=== PATIENT | female | born 1935 | race Caucasian/White ===

== ENCOUNTER 2017-07-23 06:39 | Inpatient (IN) | payer OTHER ==
[~2017-07-23] VITALS: Ht 152.4 cm; Wt 73.6 kg
[2017-07-23] VITALS (16 sets, daily range): BP systolic 98–259; BP diastolic 22–137
[2017-07-23 07:57] LABS: PLATELET COUNT 192 x10^3mcL (130-400); RED CELL DISTRIBUTION WIDTH 13.8 % (11.5-14.5)
[2017-07-23 08:13] LABS: CALCIUM 8.5 mg/dL (8.5-10.1); CARBON DIOXIDE 25.3 mmol/L (21-32); CHLORIDE SERUM 96 mmol/L (98-107); CREATININE SERUM 0.9 mg/dL (0.6-1.0); GLUCOSE SERUM 313 mg/dL (74-106); POTASSIUM SERUM 3.7 mmol/L (3.5-5.1); SODIUM SERUM 131 mmol/L (136-145)
[2017-07-23 08:22] LABS: BAND NEUTROPHIL 12 % (0-10); METAMYELOCTE 5 % (0-2); MONOCYTE 4 % (0-7); MYELOCYTE 1 % (0-2); SEGMENTED NEUTROPHILS 71 % (37-75); rbc morphology (normal/abnorm) NORMAL (NORMAL)
[2017-07-23] MEDS ORDERED: DICLOFENAC SODI75 MG PO (08:25)
[2017-07-23] MEDS ORDERED: METFORMIN HCL850 MG PO (08:25)
[2017-07-23] MEDS ORDERED: COZAAR25 M1 PO (08:25)
[2017-07-23] MEDS ORDERED: GLIPIZIDE5 M2 PO (08:25)
[2017-07-23] MEDS ORDERED: SIMVASTATIN20 M1 PO (08:26)
[2017-07-23 08:29] LABS: ALKALINE PHOSPHATASE 111 U/L (46-116); ALT/SGPT 22 U/L (14-59); AMYLASE 31 U/L (25-115); AST/SGOT 21 U/L (15-37); BILIRUBIN TOTAL 0.44 mg/dL (0.20-1.00); LIPASE 74 IU/L (73-393); T4(THYROXINE) 6.3 ug/dL (4.7-13.3)
[2017-07-23 08:30] LABS: ALBUMIN 3.3 g/dL (3.4-5.0); CHOLESTEROL 228 mg/dL (<200); HDL CHOLESTEROL 61 mg/dL (40-60)
[2017-07-23 09:16] LABS: UA SPECIFIC GRAVITY 1.015 (1.005-1.035); microscopic required? YES; urine erythrocyte TRACE (NEGATIVE)
[2017-07-23 10:10] LABS: MAGNESIUM 1.6 mg/dL (1.8-2.4); PHOSPHOROUS 2.5 mg/dL (2.5-4.9)
[2017-07-23 10:35] LABS: T3 TOTAL 0.75 ng/mL
[2017-07-23 10:37] LABS: CHOLESTEROL/HDL RATIO 3.9
[2017-07-23 11:20] LABS: FREE T4 0.98 ng/dL (0.76-1.46); FREE THYROXINE INDEX 2.2 ug/dL (1.4-4.5); T4(THYROXINE) 6.8 ug/dL (4.7-13.3)
[2017-07-24] VITALS (17 sets, daily range): BP systolic 81–154; BP diastolic 43–108
[2017-07-24 04:51] LABS: PLATELET COUNT 171 x10^3mcL (130-400)
[2017-07-24 05:03] LABS: RED CELL DISTRIBUTION WIDTH 14.8 % (11.5-14.5)
[2017-07-24 05:04] LABS: CALCIUM 7.3 mg/dL (8.5-10.1); CARBON DIOXIDE 24.5 mmol/L (21-32); CHLORIDE SERUM 100 mmol/L (98-107); GLUCOSE SERUM 257 mg/dL (74-106); MAGNESIUM 1.6 mg/dL (1.8-2.4); PHOSPHOROUS 3.2 mg/dL (2.5-4.9); POTASSIUM SERUM 3.1 mmol/L (3.5-5.1); SODIUM SERUM 133 mmol/L (136-145)
[2017-07-24 05:51] LABS: BAND NEUTROPHIL 14 % (0-10); METAMYELOCTE 3 % (0-2); MONOCYTE 2 % (0-7); SEGMENTED NEUTROPHILS 74 % (37-75)
[2017-07-24 05:56] LABS: rbc morphology (normal/abnorm) ABNORMAL (NORMAL)
[2017-07-24 05:57] LABS: PLATELET MORPHOLOGY LARGE PLATELET SEEN
[2017-07-25] VITALS (19 sets, daily range): BP systolic 101–172; BP diastolic 49–73
[2017-07-25 05:52] LABS: CALCIUM 7.8 mg/dL (8.5-10.1); CARBON DIOXIDE 25.2 mmol/L (21-32); CHLORIDE SERUM 104 mmol/L (98-107); CREATININE SERUM 0.7 mg/dL (0.6-1.0); GLUCOSE SERUM 223 mg/dL (74-106); PHOSPHOROUS 2.1 mg/dL (2.5-4.9); POTASSIUM SERUM 3.4 mmol/L (3.5-5.1); SODIUM SERUM 136 mmol/L (136-145)
[2017-07-25 05:59] LABS: BASOPHIL % 0.1 % (0-2); PLATELET COUNT 163 x10^3mcL (130-400)
[2017-07-25 06:01] LABS: RED CELL DISTRIBUTION WIDTH 15.1 % (11.5-14.5)
[2017-07-26] VITALS (14 sets, daily range): BP systolic 96–195; BP diastolic 47–95
[2017-07-26 06:36] LABS: CARBON DIOXIDE 26.4 mmol/L (21-32); CHLORIDE SERUM 110 mmol/L (98-107); CREATININE SERUM 0.6 mg/dL (0.6-1.0); GLUCOSE SERUM 206 mg/dL (74-106); MAGNESIUM 1.7 mg/dL (1.8-2.4); PHOSPHOROUS 2.2 mg/dL (2.5-4.9); POTASSIUM SERUM 3.7 mmol/L (3.5-5.1); SODIUM SERUM 142 mmol/L (136-145)
[2017-07-26 06:55] LABS: PLATELET COUNT 181 x10^3mcL (130-400)
[2017-07-26 07:02] LABS: RED CELL DISTRIBUTION WIDTH 15.4 % (11.5-14.5)
[2017-07-26 11:16] LABS: BAND NEUTROPHIL 15 % (0-10); BASOPHIL 0 % (0-2); MONOCYTE 5 % (0-7); MYELOCYTE 2 % (0-2); SEGMENTED NEUTROPHILS 70 % (37-75)
[2017-07-26 11:18] LABS: rbc morphology (normal/abnorm) ABNORMAL (NORMAL)
[2017-07-27] VITALS (7 sets, daily range): BP systolic 133–158; BP diastolic 59–79
[2017-07-27 05:17] LABS: BASOPHIL % 0.4 % (0-2); PLATELET COUNT 186 x10^3mcL (130-400)
[2017-07-27 05:25] LABS: CALCIUM 7.9 mg/dL (8.5-10.1); CARBON DIOXIDE 30.9 mmol/L (21-32); CHLORIDE SERUM 106 mmol/L (98-107); CREATININE SERUM 0.6 mg/dL (0.6-1.0); GLUCOSE SERUM 188 mg/dL (74-106); PHOSPHOROUS 3.2 mg/dL (2.5-4.9); SODIUM SERUM 140 mmol/L (136-145)
[2017-07-27 05:29] LABS: POTASSIUM SERUM 2.9 mmol/L (3.5-5.1)
[2017-07-27 12:52] LABS: CALCIUM 8.2 mg/dL (8.5-10.1); CARBON DIOXIDE 31.3 mmol/L (21-32); CHLORIDE SERUM 104 mmol/L (98-107); CREATININE SERUM 0.6 mg/dL (0.6-1.0); GLUCOSE SERUM 189 mg/dL (74-106); POTASSIUM SERUM 3.4 mmol/L (3.5-5.1); SODIUM SERUM 140 mmol/L (136-145)
[2017-07-28] VITALS: BP 166/69
[2017-07-28 04:00] VITALS: BP 158/72
[2017-07-28 05:30] LABS: BASOPHIL % 0.2 % (0-2); PLATELET COUNT 227 x10^3mcL (130-400)
[2017-07-28 05:44] LABS: CALCIUM 8.3 mg/dL (8.5-10.1); CARBON DIOXIDE 29.9 mmol/L (21-32); CHLORIDE SERUM 109 mmol/L (98-107); CREATININE SERUM 0.6 mg/dL (0.6-1.0); GLUCOSE SERUM 144 mg/dL (74-106); MAGNESIUM 1.7 mg/dL (1.8-2.4); PHOSPHOROUS 3.4 mg/dL (2.5-4.9); POTASSIUM SERUM 3.6 mmol/L (3.5-5.1); SODIUM SERUM 147 mmol/L (136-145)
[2017-07-28 06:58] LABS: RED CELL DISTRIBUTION WIDTH 15.1 % (11.5-14.5)
[2017-07-28 08:00] VITALS: BP 135/56
[2017-07-28 08:21] VITALS: Ht 152.4 cm; Wt 73.6 kg
[2017-07-28 11:45] VITALS: BP 160/64
[2017-07-28 15:30] VITALS: BP 155/73
[2017-07-28 22:00] VITALS: BP 175/76
[2017-07-29] VITALS (9 sets, daily range): BP systolic 120–198; BP diastolic 51–81
[2017-07-29 06:28] LABS: CALCIUM 8.5 mg/dL (8.5-10.1); CARBON DIOXIDE 29.5 mmol/L (21-32); CHLORIDE SERUM 107 mmol/L (98-107); CREATININE SERUM 1.3 mg/dL (0.6-1.0); GLUCOSE SERUM 180 mg/dL (74-106); MAGNESIUM 1.8 mg/dL (1.8-2.4); POTASSIUM SERUM 3.5 mmol/L (3.5-5.1); SODIUM SERUM 146 mmol/L (136-145)
[2017-07-29 06:33] LABS: BASOPHIL % 0.2 % (0-2); PLATELET COUNT 245 x10^3mcL (130-400); RED CELL DISTRIBUTION WIDTH 14.6 % (11.5-14.5)
[2017-07-30] VITALS (9 sets, daily range): BP systolic 147–183; BP diastolic 61–72
[2017-07-30 06:41] LABS: BASOPHIL % 0.2 % (0-2); PLATELET COUNT 300 x10^3mcL (130-400)
[2017-07-30 06:54] LABS: CALCIUM 8.3 mg/dL (8.5-10.1); CARBON DIOXIDE 27.2 mmol/L (21-32); CHLORIDE SERUM 102 mmol/L (98-107); GLUCOSE SERUM 180 mg/dL (74-106); MAGNESIUM 1.8 mg/dL (1.8-2.4); PHOSPHOROUS 4.2 mg/dL (2.5-4.9); POTASSIUM SERUM 3.1 mmol/L (3.5-5.1); SODIUM SERUM 140 mmol/L (136-145)
[2017-07-30 07:02] LABS: RED CELL DISTRIBUTION WIDTH 14.8 % (11.5-14.5)
[2017-07-31] VITALS (10 sets, daily range): BP systolic 154–190; BP diastolic 63–89
[2017-07-31] MEDS ORDERED: NOR5 PO (06:17)
[2017-07-31 06:50] LABS: CALCIUM 8.5 mg/dL (8.5-10.1); CARBON DIOXIDE 25.5 mmol/L (21-32); CHLORIDE SERUM 105 mmol/L (98-107); GLUCOSE SERUM 160 mg/dL (74-106); MAGNESIUM 1.9 mg/dL (1.8-2.4); PHOSPHOROUS 3.7 mg/dL (2.5-4.9); POTASSIUM SERUM 4.5 mmol/L (3.5-5.1); SODIUM SERUM 139 mmol/L (136-145)
[2017-07-31 06:53] LABS: BASOPHIL % 0.3 % (0-2); PLATELET COUNT 320 x10^3mcL (130-400)
[2017-07-31 07:08] LABS: RED CELL DISTRIBUTION WIDTH 14.7 % (11.5-14.5)
[2017-08-01 03:33] VITALS: BP 178/76
[2017-08-01 05:42] VITALS: BP 126/69
[2017-08-01 06:18] LABS: BASOPHIL % 0.5 % (0-2); PLATELET COUNT 338 x10^3mcL (130-400); RED CELL DISTRIBUTION WIDTH 14.5 % (11.5-14.5)
[2017-08-01 06:57] LABS: CALCIUM 8.4 mg/dL (8.5-10.1); CARBON DIOXIDE 27.9 mmol/L (21-32); CHLORIDE SERUM 102 mmol/L (98-107); CREATININE SERUM 2.1 mg/dL (0.6-1.0); GLUCOSE SERUM 168 mg/dL (74-106); MAGNESIUM 1.8 mg/dL (1.8-2.4); PHOSPHOROUS 4.1 mg/dL (2.5-4.9); POTASSIUM SERUM 3.8 mmol/L (3.5-5.1); SODIUM SERUM 140 mmol/L (136-145)
[2017-08-01 09:16] VITALS: BP 187/71
[2017-08-01 13:16] VITALS: BP 174/73
[2017-08-01 14:07] LABS: SOURCE FLUID THORACENTESIS
[2017-08-01 14:18] LABS: COLOR FLUID YELLOW; WBC FLUID 41 /cumm
[2017-08-01 14:19] LABS: RBC FLUID 985 /cumm
[2017-08-01 14:21] LABS: MONOCYTE FLUID 9 %
[2017-08-01 14:22] LABS: LYMPHOCYTE FLUID 88 %
[2017-08-01 15:43] LABS: RED BLOOD CELLS 2.82 M/mm3 (4.10-5.10)
[2017-08-01 15:52] LABS: IRON 28 ug/dL (50-170); TOTAL IRON BINDING CAPACITY 173 ug/dL (250-450)
[2017-08-01 16:44] VITALS: BP 155/59
[2017-08-01 20:38] VITALS: BP 179/63
[2017-08-02 06:36] VITALS: BP 165/72
[2017-08-02 06:39] LABS: BASOPHIL % 0.2 % (0-2); PLATELET COUNT 357 x10^3mcL (130-400)
[2017-08-02 07:29] LABS: CALCIUM 8.2 mg/dL (8.5-10.1); CARBON DIOXIDE 30.8 mmol/L (21-32); CHLORIDE SERUM 97 mmol/L (98-107); GLUCOSE SERUM 169 mg/dL (74-106); MAGNESIUM 1.6 mg/dL (1.8-2.4); PHOSPHOROUS 4.3 mg/dL (2.5-4.9); POTASSIUM SERUM 3.2 mmol/L (3.5-5.1); SODIUM SERUM 139 mmol/L (136-145)
[2017-08-02 07:40] LABS: RED CELL DISTRIBUTION WIDTH 14.7 % (11.5-14.5)
[2017-08-02 08:45] VITALS: BP 145/54
[2017-08-02 13:11] VITALS: BP 133/57
[2017-08-02 17:24] VITALS: BP 131/47
[2017-08-02 21:07] VITALS: BP 142/55
[2017-08-03 01:37] VITALS: BP 138/55
[2017-08-03 05:52] VITALS: BP 144/56
[2017-08-03 06:09] LABS: BASOPHIL % 0.4 % (0-2); PLATELET COUNT 334 x10^3mcL (130-400)
[2017-08-03 06:21] LABS: CALCIUM 8.3 mg/dL (8.5-10.1); CARBON DIOXIDE 32.7 mmol/L (21-32); CHLORIDE SERUM 100 mmol/L (98-107); CREATININE SERUM 1.8 mg/dL (0.6-1.0); GLUCOSE SERUM 126 mg/dL (74-106); MAGNESIUM 2.1 mg/dL (1.8-2.4); PHOSPHOROUS 3.7 mg/dL (2.5-4.9); POTASSIUM SERUM 3.4 mmol/L (3.5-5.1); SODIUM SERUM 140 mmol/L (136-145)
[2017-08-03 06:39] LABS: RED CELL DISTRIBUTION WIDTH 14.6 % (11.5-14.5)
[2017-08-03 09:25] VITALS: BP 131/50
[2017-08-03] MEDS ORDERED: HYDRALAZINE HCL25 MG PO (10:23)
[2017-08-03] MEDS ORDERED: LEVAQUIN750 MG PO (10:29)
[2017-08-03] MEDS ORDERED: LAC PO (10:30)
[2017-08-03] MEDS ORDERED: CLEOCIN HCL300 MG PO (11:23)
[2017-08-03] MEDS ORDERED: METOPROLOL TART25 M1 PO (12:21)
[2017-08-03 13:31] VITALS: BP 131/50
[2017-08-03 13:35] VITALS: BP 126/50
== END 2017-08-03 15:00 | disposition home health service (06) | DRG 720 ==
LOC: ED 06:39 → IC 09:30 → DU 09:30 → IC 12:05 → DU 12:11 → IC 12:12 → DU 12:16 → IC 12:23 → MU 12:46 → IC 12:59 → DU 07-28 19:45
PROVIDERS: Emergency Medicine; Family Medicine; Family Medicine Sports Medicine; Student in an Organized Health Care Education/Training Program
PROC: 0BH17EZ Insertion of Endotracheal Airway into Trachea, Via Natural or Artificial Opening (ICD-10-PCS; principal; 2017-07-23)
PROC: 5A1945Z Respiratory Ventilation, 24-96 Consecutive Hours (ICD-10-PCS; 2017-07-23)
PROC: 02HV33Z Insertion of Infusion Device into Superior Vena Cava, Percutaneous Approach (ICD-10-PCS; 2017-07-23)
PROC: B548ZZA Ultrasonography of Superior Vena Cava, Guidance (ICD-10-PCS; 2017-07-23)
PROC: 0W993ZZ Drainage of Right Pleural Cavity, Percutaneous Approach (ICD-10-PCS; 2017-07-31)
DX: A41.9 Sepsis, unspecified organism (principal); N17.0 Acute kidney failure with tubular necrosis; J96.01 Acute respiratory failure with hypoxia; J69.0 Pneumonitis due to inhalation of food and vomit; G93.41 Metabolic encephalopathy; J90 Pleural effusion, not elsewhere classified; E44.0 Moderate protein-calorie malnutrition; E87.1 Hypo-osmolality and hyponatremia; N39.0 Urinary tract infection, site not specified; I16.1 Hypertensive emergency; K21.9 Gastro-esophageal reflux disease without esophagitis; E78.5 Hyperlipidemia, unspecified; E78.00 Pure hypercholesterolemia, unspecified; I50.9 Heart failure, unspecified; D64.9 Anemia, unspecified; E87.6 Hypokalemia; E83.42 Hypomagnesemia; K57.30 Diverticulosis of large intestine without perforation or abscess without bleeding; E66.2 Morbid (severe) obesity with alveolar hypoventilation
CPT/HCPCS: 32555; 36556; 36600; 82962; 83880; 84439; 87804; 92526-GN; 92610-GN; 94150; 97110-GP; 97116-GP; 97530-GP; A4628; C1729; J0330; J0360; J1630; J1642; J1644; J1815; J1885; J1940; J1956; J2250; J2270; J2543; J2704; J3010; J3370; J3475; J3480; J3490; J7030; J7042; J7620; Q0092; Q0162; Q9967

== ENCOUNTER 2018-01-29 07:13 | Day surgery (SDC) | payer OTHER ==
[~2018-01-29] VITALS: Ht 134.6 cm; Wt 59.0 kg
[~2018-01-29 07:13] MED LIST: CLEOCIN HCL300 MG PO; COZAAR25 M1 PO; DICLOFENAC SODI75 MG PO; GLIPIZIDE5 M2 PO; HYDRALAZINE HCL25 MG PO; LAC PO; LEVAQUIN750 MG PO; METFORMIN HCL850 MG PO; METOPROLOL TART25 M1 PO; NOR5 PO; SIMVASTATIN20 M1 PO
[2018-01-29 07:39] VITALS: BP 161/69
[2018-01-29 11:30] VITALS: BP 200/79
== END 2018-01-29 11:00 | disposition home or self-care (01) ==
LOC: GI 07:13 → OR 10:00 → GI 10:30 → OR 11:15 → GI 11:15 → OR 12:30
PROVIDERS: Internal Medicine Gastroenterology
PROC: 0DB68ZX Excision of Stomach, Via Natural or Artificial Opening Endoscopic, Diagnostic (ICD-10-PCS; principal; 2018-01-29 09:45)
PROC: 0DJD8ZZ Inspection of Lower Intestinal Tract, Via Natural or Artificial Opening Endoscopic (ICD-10-PCS; 2018-01-29 09:45)
DX: R13.10 Dysphagia, unspecified (principal); K57.30 Diverticulosis of large intestine without perforation or abscess without bleeding; Z12.11 Encounter for screening for malignant neoplasm of colon
CPT/HCPCS: 43235; 45378; 82962; J1200; J1610; J2250; J2310; J3010; J3490